=== PATIENT | female | born 1970 | race Caucasian/White ===

== ENCOUNTER 2016-04-26 10:35 | Emergency (ER) | payer SELFPAY ==
[2012-02-22 13:36] VITALS: BMI 40.4
[2016-04-26 11:53] LABS: BASOPHILS 0.3 % (0.0-2.0); EOSINOPHILS 1.9 % (0-7); HEMATOCRIT 41.7 % (36.0-48.0); HEMOGLOBIN 13.7 g/dL (12-16); IMMATURE GRANULOCYTES 0.4 % (0-5); LYMPHOCYTES 22.3 % (15-50); MCH 29.7 pg (26.0-34.0); MCHC 32.9 g/dL (31.0-37.0); MCV 90.3 fL (80.0-100.0); MEAN PLATELET VOLUME 10.3 fL (7.4-10.4); NEUTROPHILS 66.1 % (40-80); PLATELET COUNT 201 10x3/uL (130-400); RBC 4.62 10x6/uL (4.00-5.40); RDW 12.5 % (11.5-14.5); WBC 9.9 10x3/uL (4.8-10.8)
[2016-04-26 12:15] LABS: ALBUMIN 3.7 g/dL (3.4-5.0); ANION GAP 9.7 mmol/L (8-16); BILIRUBIN - TOTAL 0.6 mg/dL (0.2-1.3); CALCIUM 9.4 mg/dL (8.5-10.1); CARBON DIOXIDE 31.1 mmol/L (21.0-32.0); CREATININE - SERUM 0.9 mg/dL (0.6-1.3); POTASSIUM - SERUM 3.8 mmol/L (3.5-5.1); PROTEIN - SERUM 7.7 g/dL (6.4-8.2)
== END 2016-04-26 13:50 | disposition home or self-care (01) ==
LOC: D.ER 10:35
PROVIDERS: Emergency Medicine
DX: R00.2 Palpitations (principal); I49.3 Ventricular premature depolarization; F17.200 Nicotine dependence, unspecified, uncomplicated

== ENCOUNTER 2017-01-24 03:58 | Emergency (ER) | payer MEDICAID ==
[2012-02-22 13:36] VITALS: BMI 40.4
== END 2017-01-24 05:00 | disposition home or self-care (01) ==
LOC: D.ER 03:58
DX: L02.01 Cutaneous abscess of face (principal)

== ENCOUNTER → 2019-02-19 09:30 | Outpatient (CLI) | payer OTHER ==
[2012-02-22 13:36] VITALS: BMI 40.4
== END | disposition home or self-care (01) ==
LOC: D.MRI 09:30
PROVIDERS: ATTEND Registered Nurse Emergency
DX: D23.9 Other benign neoplasm of skin, unspecified (principal)